=== PATIENT | female | born 1950 | race Asian ===

== ENCOUNTER 2016-06-19 04:24 | Inpatient (IN) | payer MEDICARE, MEDICAID ==
[~2016-06-19] VITALS: Ht 157.5 cm; Wt 67.2 kg
[~2016-06-19 04:24] MED LIST: FAMO20 GT; LACT30L GT; METF500T4 GT; METO50 GT; MIRAUD GT; ONDA4 GT; TRAZ-144 GT
[2016-06-19] MEDS ORDERED: TRAZ-144 PO (04:38)
[2016-06-19] MEDS ORDERED: METO50 PO (04:38)
[2016-06-19] MEDS ORDERED: MV-M1TAB20 GT (04:38)
[2016-06-19] MEDS ORDERED: ONDA4 PO (04:38)
[2016-06-19] MEDS ORDERED: LACT30L PO (04:38)
[2016-06-19] MEDS ORDERED: ALBU8HFA NEB (04:38)
[2016-06-19] MEDS ORDERED: METF500T4 PO (04:38)
[2016-06-19] MEDS ORDERED: FAMO20 PO (04:38)
[2016-06-19 04:50] LABS: EOSINOPHILS # (AUTO) 0.03 K/uL (0.00-0.70); EOSINOPHILS % (AUTO) 0.21 % (1.0-6.0); HEMATOCRIT 42.1 % (36-46); LYMPHOCYTES # (AUTO) 1.6 K/uL (1.0-4.8); LYMPHOCYTES % (AUTO) 12.4 % (22.0-44.0); MEAN CORPUSCULAR HEMOGLOBIN 29.1 pg (26.0-34.0); MEAN CORPUSCULAR HGB CONC 33.2 G/dL (31.0-37.0); MEAN CORPUSCULAR VOLUME 87 fL (80-100); MONOCYTES # (AUTO) 0.4 K/uL (0.1-1.0); MONOCYTES % (AUTO) 3.1 % (2.0-9.0); NEUTROPHILS # (AUTO) 10.6 K/uL (1.8-7.7); NEUTROPHILS % (AUTO) 84.2 % (40.0-70.0); PLATELET COUNT (AUTO) 252 K/uL (150-450); RED BLOOD CELL COUNT(AUTO) 4.82 MIL/uL (4.00-5.20); WHITE BLOOD COUNT (AUTO) 12.5 K/uL (4.5-11.0)
[2016-06-19 04:52] LABS: APPEARANCE,URINE TURBID (CLEAR); GLUCOSE, URINE (UA) NEGATIVE (NEGATIVE); KETONES,URINE NEGATIVE (NEGATIVE); LEUKOCYTE ESTERASE ,URINE SMALL (NEGATIVE); OCCULT BLOOD,URINE SMALL (NEGATIVE); PROTEIN,URINE NEGATIVE (NEGATIVE)
[2016-06-19 04:54] LABS: ADD UA MICROSCOPIC YES
[2016-06-19] MEDS ORDERED: SODIUM CHLORIDE 0.9% 1,000 ML IV ONE (05:15)
[2016-06-19] MEDS ORDERED: ONDANSETRON HCL 4 MG/2 ML VIAL IVP ONE (05:15)
[2016-06-19 05:21] LABS: AMORPHOUS SEDIMENT,UR Moderate /LPF (None Seen)
[2016-06-19 05:30] LABS: ANION GAP 5 mmol/L (8-16); CALCIUM, TOTAL 9.7 mg/dL (8.8-10.5); CARBON DIOXIDE 32 mmol/L (22-29); CHLORIDE 98 mmol/L (98-107); CREATININE 0.69 mg/dL (0.60-1.30); GLOMERULAR FILTR. RATE CALC > 60 mL/min (>60); POTASSIUM 4.3 mmol/L (3.5-5.1); SODIUM SERUM 135 mmol/L (136-145); UREA NITROGEN, BLOOD 17 mg/dL (7-18)
[2016-06-19 05:37] LABS: ALANINE AMINOTRANSFERASE 37 U/L (12-78); ALBUMIN 3.4 g/dL (3.4-5.0); ASPARTATE AMINOTRANSFERASE 21 U/L (15-37); BILIRUBIN,TOTAL 0.5 mg/dL (0.1-1.0); TOTAL PROTEIN, SERUM 8.2 g/dL (6.4-8.2)
[2016-06-19] MEDS ORDERED: BARIUM SULFATE 0.1% SUSPENSION 450 ML BOTTLE GT ONE (07:00)
[2016-06-19] MEDS ORDERED: IOVERSOL 320 MG/ML 100 ML VIAL ONE (07:35)
[2016-06-19] MEDS ORDERED: CloNIDine HCL 0.1 MG TABLET PO ONE (11:15)
[2016-06-19] MEDS ORDERED: CloNIDine HCL 0.2 MG TABLET PO ONE (11:15)
[2016-06-19] MEDS ORDERED: LEVOFLOXACIN 500 MG/D5% WATER 100 ML IV ONE (11:15)
[2016-06-19] MEDS ORDERED: MetroNIDAZOLE 500 MG/NACL 100 ML IV ONE (12:30)
[2016-06-19] MEDS ORDERED: ONDANSETRON HCL 4 MG/2 ML VIAL IVP PRN (13:30)
[2016-06-19] MEDS ORDERED: ACETAMINOPHEN 325 MG TABLET PO PRN (13:30)
[2016-06-19] MEDS ORDERED: ZOLPIDEM TARTRATE 5 MG TABLET PO PRN (13:30)
[2016-06-19] MEDS ORDERED: DEXTROSE 50%-WATER 25 GM/50 ML SYRINGE IVP PRN (13:30)
[2016-06-19] MEDS: METOPROLOL TARTRATE 50 MG TABLET PO SCH ×2 (13:46→20:33)
[2016-06-19] MEDS: POTASSIUM CHL 20 MEQ/D5-0.45NS 1,000 ML IV SCH (13:46)
[2016-06-19 15:53] VITALS: BP 122/78
[2016-06-19] MEDS: HEPARIN SODIUM,PORCINE 5,000 UNITS/ML VIAL SQ SCH (17:01)
[2016-06-19 17:37] LABS: GLUCOSE,POINT OF CARE 120 MG/DL (70-110)
[2016-06-19] MEDS ORDERED: INFLUENZA VIRUS VACCINE QVS 2016-17 (3YR+)/PF 60 MCG/0.5 ML SYRINGE IM ONE (18:30)
[2016-06-19] MEDS ORDERED: PNEUMOCOCCAL VACCINE POLYVALENT 0.5 ML VIAL [PPSV23] IM ONE (18:30)
[2016-06-19 19:42] VITALS: BP 136/90
[2016-06-19 23:45] VITALS: BP 80/52
[2016-06-20] VITALS (10 sets, daily range): BP systolic 94–155; BP diastolic 55–95
[2016-06-20] MEDS ORDERED: SODIUM CHLORIDE 0.9% 500 ML IV ONE ×2 (00:20→00:30)
[2016-06-20 01:16] LABS: GLUCOSE COMMENT 1 Received Meds; GLUCOSE,POINT OF CARE 106 MG/DL (70-110)
[2016-06-20] MEDS: POTASSIUM CHL 20 MEQ/D5-0.45NS 1,000 ML IV SCH ×2 (05:55→18:47)
[2016-06-20 06:00] LABS: EOSINOPHILS # (AUTO) 0.02 K/uL (0.00-0.70); EOSINOPHILS % (AUTO) 0.25 % (1.0-6.0); HEMATOCRIT 38.4 % (36-46); HEMOGLOBIN 13.1 g/dL (12.0-16.0); LYMPHOCYTES # (AUTO) 1.5 K/uL (1.0-4.8); LYMPHOCYTES % (AUTO) 17.2 % (22.0-44.0); MEAN CORPUSCULAR HEMOGLOBIN 29.6 pg (26.0-34.0); MEAN CORPUSCULAR VOLUME 87 fL (80-100); MONOCYTES # (AUTO) 0.5 K/uL (0.1-1.0); MONOCYTES % (AUTO) 6.2 % (2.0-9.0); NEUTROPHILS # (AUTO) 6.6 K/uL (1.8-7.7); NEUTROPHILS % (AUTO) 76.4 % (40.0-70.0); PLATELET COUNT (AUTO) 239 K/uL (150-450); RED BLOOD CELL COUNT(AUTO) 4.41 MIL/uL (4.00-5.20); RED CELL DISTRIBUTION WIDTH 14.5 % (11.5-14.5); WHITE BLOOD COUNT (AUTO) 8.6 K/uL (4.5-11.0)
[2016-06-20 06:32] LABS: GLUCOSE,POINT OF CARE 100 MG/DL (70-110)
[2016-06-20 06:40] LABS: ALANINE AMINOTRANSFERASE 31 U/L (12-78); ALBUMIN 2.8 g/dL (3.4-5.0); ANION GAP 8 mmol/L (8-16); ASPARTATE AMINOTRANSFERASE 23 U/L (15-37); BILIRUBIN,TOTAL 0.7 mg/dL (0.1-1.0); CALCIUM, TOTAL 9.2 mg/dL (8.8-10.5); CARBON DIOXIDE 28 mmol/L (22-29); CHLORIDE 103 mmol/L (98-107); CREATININE 0.62 mg/dL (0.60-1.30); GLOMERULAR FILTR. RATE CALC > 60 mL/min (>60); POTASSIUM 4.4 mmol/L (3.5-5.1); SODIUM SERUM 139 mmol/L (136-145); TOTAL PROTEIN, SERUM 7.2 g/dL (6.4-8.2); UREA NITROGEN, BLOOD 11 mg/dL (7-18)
[2016-06-20] MEDS: PANTOPRAZOLE SODIUM 40 MG/VIAL IVP SCH (08:59)
[2016-06-20] MEDS: HEPARIN SODIUM,PORCINE 5,000 UNITS/ML VIAL SQ SCH ×4 (08:59→23:43)
[2016-06-20] MEDS: METOPROLOL TARTRATE 50 MG TABLET PO SCH ×2 (08:59→20:42)
[2016-06-20 11:32] LABS: GLUCOSE,POINT OF CARE 106 MG/DL (70-110)
[2016-06-20 17:28] LABS: GLUCOSE,POINT OF CARE 120 MG/DL (70-110)
[2016-06-20] MEDS: TraZODone HCL 50 MG TABLET PO SCH (22:43)
[2016-06-21 00:12] LABS: GLUCOSE,POINT OF CARE 139 MG/DL (70-110)
[2016-06-21 04:35] VITALS: BP 134/83
[2016-06-21] MEDS: INSULIN ASPART 100 UNITS/ML SQ PRN ×2 (06:08→17:33)
[2016-06-21 06:31] LABS: BASOPHILS % (AUTO) 0.3 % (0.0-2.0); EOSINOPHILS % (AUTO) 0.8 % (1.0-6.0); HEMATOCRIT 40.2 % (36-46); HEMOGLOBIN 13.1 g/dL (12.0-16.0); LYMPHOCYTES # (AUTO) 1.5 K/uL (1.0-4.8); MEAN CORPUSCULAR HEMOGLOBIN 28.7 pg (26.0-34.0); MEAN CORPUSCULAR HGB CONC 32.5 G/dL (31.0-37.0); MEAN CORPUSCULAR VOLUME 88 fL (80-100); MONOCYTES # (AUTO) 0.6 K/uL (0.1-1.0); MONOCYTES % (AUTO) 6.7 % (2.0-9.0); NEUTROPHILS # (AUTO) 6.2 K/uL (1.8-7.7); NEUTROPHILS % (AUTO) 74.2 % (40.0-70.0); PLATELET COUNT (AUTO) 268 K/uL (150-450); RED BLOOD CELL COUNT(AUTO) 4.56 MIL/uL (4.00-5.20); RED CELL DISTRIBUTION WIDTH 14.2 % (11.5-14.5); WHITE BLOOD COUNT (AUTO) 8.3 K/uL (4.5-11.0)
[2016-06-21 07:01] LABS: GLUCOSE,POINT OF CARE 142 MG/DL (70-110)
[2016-06-21 07:05] LABS: ALANINE AMINOTRANSFERASE 32 U/L (12-78); ALBUMIN 2.9 g/dL (3.4-5.0); ANION GAP 8 mmol/L (8-16); ASPARTATE AMINOTRANSFERASE 20 U/L (15-37); BILIRUBIN,TOTAL 0.5 mg/dL (0.1-1.0); CALCIUM, TOTAL 9.3 mg/dL (8.8-10.5); CARBON DIOXIDE 28 mmol/L (22-29); CHLORIDE 101 mmol/L (98-107); CREATININE 0.63 mg/dL (0.60-1.30); GLOMERULAR FILTR. RATE CALC > 60 mL/min (>60); POTASSIUM 4.1 mmol/L (3.5-5.1); SODIUM SERUM 137 mmol/L (136-145); TOTAL PROTEIN, SERUM 7.7 g/dL (6.4-8.2); UREA NITROGEN, BLOOD 10 mg/dL (7-18)
[2016-06-21 07:16] VITALS: BP 155/91
[2016-06-21] MEDS: HEPARIN SODIUM,PORCINE 5,000 UNITS/ML VIAL SQ SCH ×2 (09:02→16:23)
[2016-06-21] MEDS: POTASSIUM CHL 20 MEQ/D5-0.45NS 1,000 ML IV SCH (09:02)
[2016-06-21] MEDS: PANTOPRAZOLE SODIUM 40 MG/VIAL IVP SCH (09:02)
[2016-06-21] MEDS: METOPROLOL TARTRATE 50 MG TABLET PO SCH ×2 (09:02→21:47)
[2016-06-21 11:38] VITALS: BP 143/81
[2016-06-21 12:32] LABS: GLUCOSE,POINT OF CARE 121 MG/DL (70-110)
[2016-06-21 15:38] VITALS: BP 143/83
[2016-06-21 19:29] VITALS: BP 156/98
[2016-06-21 20:11] LABS: GLUCOSE COMMENT 1 Received Meds; GLUCOSE,POINT OF CARE 153 MG/DL (70-110)
[2016-06-22 00:05] VITALS: BP 160/94
[2016-06-22] MEDS: TraZODone HCL 50 MG TABLET PO SCH (00:07)
[2016-06-22] MEDS: HEPARIN SODIUM,PORCINE 5,000 UNITS/ML VIAL SQ SCH ×3 (00:07→17:28)
[2016-06-22] MEDS: POTASSIUM CHL 20 MEQ/D5-0.45NS 1,000 ML IV SCH (00:34)
[2016-06-22 01:05] VITALS: BP 123/77
[2016-06-22 04:02] VITALS: BP 147/79
[2016-06-22] MEDS: INSULIN ASPART 100 UNITS/ML SQ PRN ×3 (06:34→17:56)
[2016-06-22 07:11] LABS: GLUCOSE COMMENT 1 Received Meds; GLUCOSE,POINT OF CARE 158 MG/DL (70-110)
[2016-06-22 07:14] LABS: ALANINE AMINOTRANSFERASE 29 U/L (12-78); ALBUMIN 2.8 g/dL (3.4-5.0); ANION GAP 8 mmol/L (8-16); ASPARTATE AMINOTRANSFERASE 19 U/L (15-37); BILIRUBIN,TOTAL 0.4 mg/dL (0.1-1.0); CALCIUM, TOTAL 9.1 mg/dL (8.8-10.5); CARBON DIOXIDE 28 mmol/L (22-29); CHLORIDE 98 mmol/L (98-107); CREATININE 0.55 mg/dL (0.60-1.30); GLOMERULAR FILTR. RATE CALC > 60 mL/min (>60); POTASSIUM 4.1 mmol/L (3.5-5.1); SODIUM SERUM 134 mmol/L (136-145); TOTAL PROTEIN, SERUM 7.4 g/dL (6.4-8.2); UREA NITROGEN, BLOOD 10 mg/dL (7-18)
[2016-06-22 07:30] LABS: BASOPHILS # (AUTO) 0.02 K/uL (0.00-0.20); BASOPHILS % (AUTO) 0.3 % (0.0-2.0); EOSINOPHILS # (AUTO) 0.04 K/uL (0.00-0.70); EOSINOPHILS % (AUTO) 0.43 % (1.0-6.0); HEMATOCRIT 40.1 % (36-46); HEMOGLOBIN 13.1 g/dL (12.0-16.0); LYMPHOCYTES # (AUTO) 1.3 K/uL (1.0-4.8); LYMPHOCYTES % (AUTO) 13.9 % (22.0-44.0); MEAN CORPUSCULAR HEMOGLOBIN 28.7 pg (26.0-34.0); MEAN CORPUSCULAR HGB CONC 32.6 G/dL (31.0-37.0); MEAN CORPUSCULAR VOLUME 88 fL (80-100); MONOCYTES # (AUTO) 0.6 K/uL (0.1-1.0); MONOCYTES % (AUTO) 6.4 % (2.0-9.0); NEUTROPHILS # (AUTO) 7.4 K/uL (1.8-7.7); NEUTROPHILS % (AUTO) 79.1 % (40.0-70.0); PLATELET COUNT (AUTO) 267 K/uL (150-450); RED BLOOD CELL COUNT(AUTO) 4.56 MIL/uL (4.00-5.20); RED CELL DISTRIBUTION WIDTH 14.2 % (11.5-14.5); WHITE BLOOD COUNT (AUTO) 9.4 K/uL (4.5-11.0)
[2016-06-22 08:14] VITALS: BP 145/74
[2016-06-22] MEDS: METOPROLOL TARTRATE 50 MG TABLET PO SCH (09:39)
[2016-06-22] MEDS: PANTOPRAZOLE SODIUM 40 MG/VIAL IVP SCH (09:41)
[2016-06-22 11:50] VITALS: BP 142/85
[2016-06-22 14:16] LABS: GLUCOSE,POINT OF CARE 157 MG/DL (70-110)
[2016-06-22 14:22] LABS: GLUCOSE,POINT OF CARE 164 MG/DL (70-110)
[2016-06-22 16:39] VITALS: BP 116/81
[2016-06-22] MEDS ORDERED: CIP250 PO (16:39)
[2016-06-22 17:52] LABS: GLUCOSE,POINT OF CARE 152 MG/DL (70-110)
== END 2016-06-22 18:35 | disposition home or self-care (01) | DRG 690 ==
LOC: EMS 04:25 → EDBD 04:25 → MERGE 14:09 → 6N 14:09
PROVIDERS: ADMIT Hospitalist; ATTEND Hospitalist
PROC: 3E0234Z Introduction of Serum, Toxoid and Vaccine into Muscle, Percutaneous Approach (ICD-10-PCS; principal; 2016-06-19)
DX: N39.0 Urinary tract infection, site not specified (principal); I69.354 Hemiplegia and hemiparesis following cerebral infarction affecting left non-dominant side; R47.01 Aphasia; R10.9 Unspecified abdominal pain; R13.10 Dysphagia, unspecified; E11.9 Type 2 diabetes mellitus without complications; E78.5 Hyperlipidemia, unspecified; E86.0 Dehydration; J45.909 Unspecified asthma, uncomplicated; I10 Essential (primary) hypertension; Z23 Encounter for immunization; Z93.1 Gastrostomy status; Z88.6 Allergy status to analgesic agent; Z88.5 Allergy status to narcotic agent; Z88.7 Allergy status to serum and vaccine; Z79.4 Long term (current) use of insulin
CPT/HCPCS: 51702; 74177; 76700; 82962; 83605; 90471; 93005; 96361; 96365; 96366; 96367; 96375; 99285; C9113; J1644; J1956; J2405; J3480; J3490; J7040

== ENCOUNTER 2016-08-24 08:04 | Emergency (ER) | payer MEDICARE, OTHER ==
[~2016-08-24] VITALS: Ht 162.6 cm; Wt 61.4 kg
[~2016-08-24 08:04] MED LIST changes: +ALBU8HFA NEB; +CIP250 PO; +FAMO20 PO; +LACT30L PO; +METF500T4 PO; +METO50 PO; +MV-M1TAB20 GT; +ONDA4 PO; +TRAZ-144 PO
[2016-08-24] MEDS ORDERED: BARIUM SULFATE 0.1% SUSPENSION 450 ML BOTTLE PEG ONE (08:45)
[2016-08-24] MEDS ORDERED: ONDANSETRON HCL 4 MG/2 ML VIAL IVP ONE (08:45)
[2016-08-24] MEDS ORDERED: SODIUM CHLORIDE 0.9% 1,000 ML IV ONE (08:45)
[2016-08-24 08:59] LABS: BASOPHILS # (AUTO) 0.02 K/uL (0.00-0.20); BASOPHILS % (AUTO) 0.3 % (0.0-2.0); EOSINOPHILS # (AUTO) 0.17 K/uL (0.00-0.70); HEMATOCRIT 43.7 % (36-46); HEMOGLOBIN 14.2 g/dL (12.0-16.0); LYMPHOCYTES # (AUTO) 1.6 K/uL (1.0-4.8); LYMPHOCYTES % (AUTO) 21.1 % (22.0-44.0); MEAN CORPUSCULAR HEMOGLOBIN 28.8 pg (26.0-34.0); MEAN CORPUSCULAR HGB CONC 32.5 G/dL (31.0-37.0); MEAN CORPUSCULAR VOLUME 89 fL (80-100); MONOCYTES # (AUTO) 0.6 K/uL (0.1-1.0); MONOCYTES % (AUTO) 7.9 % (2.0-9.0); NEUTROPHILS # (AUTO) 5.3 K/uL (1.8-7.7); NEUTROPHILS % (AUTO) 68.6 % (40.0-70.0); PLATELET COUNT (AUTO) 270 K/uL (150-450); RED BLOOD CELL COUNT(AUTO) 4.92 MIL/uL (4.00-5.20); RED CELL DISTRIBUTION WIDTH 14.4 % (11.5-14.5); WHITE BLOOD COUNT (AUTO) 7.7 K/uL (4.5-11.0)
[2016-08-24 09:08] LABS: ANION GAP 7 mmol/L (8-16); CALCIUM, TOTAL 9.6 mg/dL (8.8-10.5); CARBON DIOXIDE 30 mmol/L (22-29); CHLORIDE 97 mmol/L (98-107); CREATININE 0.75 mg/dL (0.60-1.30); GLOMERULAR FILTR. RATE CALC > 60 mL/min (>60); POTASSIUM 4.3 mmol/L (3.5-5.1); SODIUM SERUM 134 mmol/L (136-145); UREA NITROGEN, BLOOD 16 mg/dL (7-18)
[2016-08-24 09:14] LABS: ALANINE AMINOTRANSFERASE 73 U/L (12-78); ALBUMIN 3.4 g/dL (3.4-5.0); ASPARTATE AMINOTRANSFERASE 43 U/L (15-37); BILIRUBIN,TOTAL 0.5 mg/dL (0.1-1.0)
[2016-08-24 09:31] LABS: GLUCOSE, URINE (UA) NEGATIVE (NEGATIVE); KETONES,URINE NEGATIVE (NEGATIVE); LEUKOCYTE ESTERASE ,URINE NEGATIVE (NEGATIVE); OCCULT BLOOD,URINE NEGATIVE (NEGATIVE); PROTEIN,URINE NEGATIVE (NEGATIVE)
[2016-08-24 09:40] LABS: ADD UA MICROSCOPIC NO; APPEARANCE,URINE CLEAR (CLEAR)
[2016-08-24] MEDS ORDERED: IOVERSOL 320 MG/ML 100 ML VIAL ONE (10:49)
[2016-08-24] MEDS ORDERED: SODIUM CHLORIDE 0.9% 100 ML ONE (10:50)
[2016-08-24 12:42] VITALS: BP 142/87
== END 2016-08-24 13:36 | disposition home or self-care (01) ==
LOC: EMS 08:05
DX: K62.89 Other specified diseases of anus and rectum (principal); R11.2 Nausea with vomiting, unspecified; I10 Essential (primary) hypertension; Z86.73 Personal history of transient ischemic attack (TIA), and cerebral infarction without residual deficits; Z88.5 Allergy status to narcotic agent; Z88.8 Allergy status to other drugs, medicaments and biological substances
CPT/HCPCS: 36415; 51701; 71010; 74177; 80053; 81003; 83690; 84484; 85025; 93005; 96361; 96374; 99285; J2405; J7030; J7050; Q9967

== ENCOUNTER 2017-02-19 18:35 | Inpatient (IN) | payer MEDICARE, OTHER ==
[~2017-02-19] VITALS: Ht 152.4 cm; Wt 63.9 kg
[~2017-02-19 18:35] MED LIST changes: -CIP250 PO; -FAMO20 PO; -LACT30L PO; -METF500T4 PO; -METO50 PO; -MIRAUD GT; -ONDA4 PO; -TRAZ-144 PO
[2017-02-19] MEDS ORDERED: CHOL200016 PO (18:51)
[2017-02-19 18:52] LABS: GLUCOSE,POINT OF CARE 211 MG/DL (70-110)
[2017-02-19] MEDS ORDERED: IPRATROPIUM BROMIDE 0.5 MG/2.5 ML NEB SOLUTION NEB ONE (19:00)
[2017-02-19] MEDS ORDERED: SODIUM CHLORIDE 0.9% 2,000 ML IV ONE (19:00)
[2017-02-19] MEDS ORDERED: ALBUTEROL SULFATE 5 MG/ML 20 ML NEB SOLN [BULK] NEB ONE (19:00)
[2017-02-19 19:12] LABS: HEMATOCRIT 45.7 % (36-46); HEMOGLOBIN 15.3 g/dL (12.0-16.0); MEAN CORPUSCULAR HEMOGLOBIN 29.6 pg (26.0-34.0); MEAN CORPUSCULAR HGB CONC 33.4 G/dL (31.0-37.0); MEAN CORPUSCULAR VOLUME 89 fL (80-100); PLATELET COUNT (AUTO) 263 K/uL (150-450); RED BLOOD CELL COUNT(AUTO) 5.16 MIL/uL (4.00-5.20); RED CELL DISTRIBUTION WIDTH 13.9 % (11.5-14.5); WHITE BLOOD COUNT (AUTO) 16.5 K/uL (4.5-11.0)
[2017-02-19] MEDS ORDERED: ONDANSETRON HCL 4 MG/2 ML VIAL IVP ONE (19:15)
[2017-02-19] MEDS ORDERED: ACETAMINOPHEN 1000 MG/ISO-OSM 100 ML IV ONE (19:15)
[2017-02-19 19:22] LABS: ANION GAP 11 mmol/L (8-16); CALCIUM, TOTAL 10.5 mg/dL (8.8-10.5); CARBON DIOXIDE 30 mmol/L (22-29); CHLORIDE 95 mmol/L (98-107); CREATININE 0.97 mg/dL (0.60-1.30); GLOMERULAR FILTR. RATE CALC 57 mL/min (>60); SODIUM SERUM 136 mmol/L (136-145); UREA NITROGEN, BLOOD 20 mg/dL (7-18)
[2017-02-19 19:24] LABS: PROTHROMBIN TIME 10.3 SEC (9.4-11.6)
[2017-02-19 19:28] LABS: ALANINE AMINOTRANSFERASE 156 U/L (12-78); ALBUMIN 3.6 g/dL (3.4-5.0); ASPARTATE AMINOTRANSFERASE 290 U/L (15-37); BILIRUBIN,TOTAL 1.5 mg/dL (0.1-1.0); CREATINE KINASE, TOTAL 50 U/L (26-192); TOTAL PROTEIN, SERUM 8.9 g/dL (6.4-8.2)
[2017-02-19 19:31] LABS: LACTIC ACID 3.5 mmol/L (0.4-2.0)
[2017-02-19 19:37] LABS: BAND NEUTROPHILS % (MANUAL) 15 % (1-5); EOSINOPHILS % (MANUAL) 1 % (1-6); LYMPHOCYTES % (MANUAL) 10 % (22-44); TOTAL CELLS COUNTED 100; WBC MORPHOLOGY TOXIC VACUOLATION
[2017-02-19 19:38] LABS: RBC MORPHOLOGY COMMENT NORMAL RBC MORPH
[2017-02-19 19:43] LABS: ADD UA MICROSCOPIC YES; APPEARANCE,URINE CLOUDY (CLEAR); GLUCOSE, URINE (UA) NEGATIVE (NEGATIVE); KETONES,URINE NEGATIVE (NEGATIVE); LEUKOCYTE ESTERASE ,URINE NEGATIVE (NEGATIVE); OCCULT BLOOD,URINE MODERATE (NEGATIVE); PROTEIN,URINE TRACE (NEGATIVE)
[2017-02-19] MEDS ORDERED: LABETALOL HCL 5 MG/ML 20 ML VIAL IVP ONE (19:45)
[2017-02-19 19:47] LABS: B-TYPE NATRIURETIC PEPTIDE 44 pg/mL (0-100)
[2017-02-19 20:05] LABS: SQUAMOUS EPITHELIAL CELL,UR Few /LPF (None Seen); WBC,URINE 0-2 /HPF (0-5)
[2017-02-19] MEDS ORDERED: CefTRIAXone 1 GM/DEXTROSE 50 ML IV ONE (20:30)
[2017-02-19] MEDS ORDERED: AZITHROMYCIN 500 MG/NS 250 ML IV ONE (20:30)
[2017-02-19 21:07] LABS: REFLEX LACTIC ACID? YES YES
[2017-02-19 21:18] LABS: INFLUENZA TYPE B NEGATIVE FOR TYPE B (NEGATIVE)
[2017-02-19 21:30] VITALS: BP 152/88
[2017-02-19 23:58] VITALS: BP 148/95
[2017-02-20] VITALS (7 sets, daily range): BP systolic 106–168; BP diastolic 69–101
[2017-02-20] MEDS ORDERED: 0.9% SODIUM CHLORIDE 10 ML SYRINGE IVP PRN (01:00)
[2017-02-20] MEDS ORDERED: ACETAMINOPHEN 325 MG TABLET PO PRN (01:00)
[2017-02-20] MEDS ORDERED: LACTULOSE 20 GM/30 ML SOLUTION UDCUP GT PRN (01:00)
[2017-02-20] MEDS ORDERED: ONDANSETRON HCL 4 MG/2 ML VIAL IVP PRN (01:00)
[2017-02-20] MEDS ORDERED: DEXTROSE 50%-WATER 25 GM/50 ML SYRINGE IVP PRN (01:00)
[2017-02-20] MEDS ORDERED: MAGNESIUM HYDROXIDE SUSPENSION 30 ML UDCUP PO PRN (01:00)
[2017-02-20] MEDS ORDERED: ALBUTEROL SULFATE 2.5 MG/0.5 ML NEB SOLUTION NEB PRN (01:00)
[2017-02-20] MEDS ORDERED: SODIUM CHLORIDE 0.9% 100 ML ONE (01:51)
[2017-02-20] MEDS: PIPERACILLIN/TAZO 3.375 GM/D5W 50 ML IV SCH ×4 (01:55→20:32)
[2017-02-20] MEDS: METOPROLOL TARTRATE 50 MG TABLET GT SCH ×3 (01:55→20:32)
[2017-02-20] MEDS: DOCUSATE SODIUM 100 MG CAPSULE PO SCH ×3 (01:55→20:32)
[2017-02-20] MEDS: IPRATROPIUM BROMIDE 0.5 MG/2.5 ML NEB SOLUTION NEB SCH ×4 (02:25→19:31)
[2017-02-20] MEDS: ALBUTEROL SULFATE 2.5 MG/0.5 ML NEB SOLUTION NEB SCH ×4 (02:25→19:32)
[2017-02-20 07:23] LABS: GLUCOSE,POINT OF CARE 238 MG/DL (70-110)
[2017-02-20 07:23] LABS: GLUCOSE,POINT OF CARE 259 MG/DL (70-110)
[2017-02-20] MEDS: FAMOTIDINE 20 MG TABLET GT SCH (08:52)
[2017-02-20] MEDS: PANTOPRAZOLE SODIUM 40 MG/VIAL IVP SCH (08:52)
[2017-02-20] MEDS: CHOLECALCIFEROL (VIT D3) 2,000 UNITS TABLET GT SCH (08:52)
[2017-02-20] MEDS: INSULIN ASPART 100 UNITS/ML SQ PRN ×3 (13:21→20:33)
[2017-02-20] MEDS: TraZODone HCL 50 MG TABLET GT SCH (20:32)
[2017-02-21] MEDS: ALBUTEROL SULFATE 2.5 MG/0.5 ML NEB SOLUTION NEB SCH ×4 (02:20→19:47)
[2017-02-21] MEDS: IPRATROPIUM BROMIDE 0.5 MG/2.5 ML NEB SOLUTION NEB SCH ×4 (02:21→19:47)
[2017-02-21] MEDS ORDERED: SODIUM CHLORIDE 0.9% 50 ML ONE (02:22)
[2017-02-21] MEDS: PIPERACILLIN/TAZO 3.375 GM/D5W 50 ML IV SCH ×4 (02:25→20:43)
[2017-02-21 05:31] VITALS: BP 119/78
[2017-02-21] MEDS: INSULIN ASPART 100 UNITS/ML SQ PRN ×4 (06:03→20:58)
[2017-02-21 06:13] LABS: GLUCOSE COMMENT 1 Received Meds; GLUCOSE,POINT OF CARE 252 MG/DL (70-110)
[2017-02-21 07:05] LABS: HEMATOCRIT 38.3 % (36-46); HEMOGLOBIN 12.9 g/dL (12.0-16.0); MEAN CORPUSCULAR HEMOGLOBIN 29.8 pg (26.0-34.0); MEAN CORPUSCULAR HGB CONC 33.7 G/dL (31.0-37.0); MEAN CORPUSCULAR VOLUME 88 fL (80-100); PLATELET COUNT (AUTO) 174 K/uL (150-450); RED BLOOD CELL COUNT(AUTO) 4.33 MIL/uL (4.00-5.20); RED CELL DISTRIBUTION WIDTH 14.8 % (11.5-14.5)
[2017-02-21 07:13] LABS: ANION GAP 9 mmol/L (8-16); CALCIUM, TOTAL 9.3 mg/dL (8.8-10.5); CARBON DIOXIDE 29 mmol/L (22-29); CHLORIDE 98 mmol/L (98-107); CREATININE 0.82 mg/dL (0.60-1.30); GLOMERULAR FILTR. RATE CALC > 60 mL/min (>60); POTASSIUM 3.3 mmol/L (3.5-5.1); SODIUM SERUM 136 mmol/L (136-145); UREA NITROGEN, BLOOD 23 mg/dL (7-18)
[2017-02-21 07:25] VITALS: BP 99/63
[2017-02-21 08:51] LABS: BAND NEUTROPHILS % (MANUAL) 15 % (1-5); LYMPHOCYTES % (MANUAL) 12 % (22-44); RBC MORPHOLOGY COMMENT NORMAL RBC MORPH; TOTAL CELLS COUNTED 100
[2017-02-21] MEDS: METOPROLOL TARTRATE 50 MG TABLET GT SCH ×2 (09:00→11:51)
[2017-02-21] MEDS: PANTOPRAZOLE SODIUM 40 MG/VIAL IVP SCH (10:00)
[2017-02-21] MEDS: CHOLECALCIFEROL (VIT D3) 2,000 UNITS TABLET GT SCH (10:00)
[2017-02-21] MEDS: DOCUSATE SODIUM 100 MG CAPSULE PO SCH ×2 (10:00→20:44)
[2017-02-21] MEDS: FAMOTIDINE 20 MG TABLET GT SCH (10:01)
[2017-02-21 11:12] LABS: GLUCOSE COMMENT 1 Received Meds; GLUCOSE,POINT OF CARE 230 MG/DL (70-110)
[2017-02-21 11:14] VITALS: BP 113/61
[2017-02-21] MEDS ORDERED: POTASSIUM CHLORIDE 10% 40 MEQ/30 ML LIQUID UDCUP JT ONE (11:30)
[2017-02-21] MEDS: ACETAMINOPHEN 650 MG/20.3 ML SOLUTION UDCUP JT PRN (13:21)
[2017-02-21 14:32] LABS: GLUCOSE,POINT OF CARE 261 MG/DL (70-110)
[2017-02-21 14:32] LABS: GLUCOSE,POINT OF CARE 261 MG/DL (70-110)
[2017-02-21 15:18] VITALS: BP 91/50
[2017-02-21 19:41] LABS: GLUCOSE,POINT OF CARE 227 MG/DL (70-110)
[2017-02-21 19:42] LABS: GLUCOSE,POINT OF CARE 305 MG/DL (70-110)
[2017-02-21 19:42] LABS: GLUCOSE COMMENT 1 Repeated; GLUCOSE,POINT OF CARE 297 MG/DL (70-110)
[2017-02-21] MEDS: TraZODone HCL 50 MG TABLET GT SCH (20:44)
[2017-02-21 20:48] LABS: ALANINE AMINOTRANSFERASE 183 U/L (12-78); ALBUMIN 2.5 g/dL (3.4-5.0); ASPARTATE AMINOTRANSFERASE 114 U/L (15-37); TOTAL PROTEIN, SERUM 6.8 g/dL (6.4-8.2)
[2017-02-21 20:57] VITALS: BP 103/69
[2017-02-21 23:44] VITALS: BP 103/66
[2017-02-22] MEDS ORDERED: SODIUM CHLORIDE 0.9% 250 ML IV ONE (02:25)
[2017-02-22] MEDS: PIPERACILLIN/TAZO 3.375 GM/D5W 50 ML IV SCH ×3 (02:28→16:06)
[2017-02-22] MEDS: IPRATROPIUM BROMIDE 0.5 MG/2.5 ML NEB SOLUTION NEB SCH ×4 (02:39→20:42)
[2017-02-22] MEDS: ALBUTEROL SULFATE 2.5 MG/0.5 ML NEB SOLUTION NEB SCH ×4 (02:39→20:42)
[2017-02-22 02:42] LABS: GLUCOSE COMMENT 1 Received Meds; GLUCOSE,POINT OF CARE 298 MG/DL (70-110)
[2017-02-22 03:57] VITALS: BP 110/69
[2017-02-22] MEDS: INSULIN ASPART 100 UNITS/ML SQ PRN ×2 (06:12→17:33)
[2017-02-22 07:08] VITALS: BP 109/62
[2017-02-22 08:26] LABS: BASOPHILS % (AUTO) 0.1 % (0.0-2.0); EOSINOPHILS % (AUTO) 0.2 % (1.0-6.0); HEMOGLOBIN 12.4 g/dL (12.0-16.0); LYMPHOCYTES # (AUTO) 0.6 K/uL (1.0-4.8); LYMPHOCYTES % (AUTO) 5.6 % (22.0-44.0); MEAN CORPUSCULAR HEMOGLOBIN 30.3 pg (26.0-34.0); MEAN CORPUSCULAR HGB CONC 34.4 G/dL (31.0-37.0); MEAN CORPUSCULAR VOLUME 88 fL (80-100); MONOCYTES # (AUTO) 0.5 K/uL (0.1-1.0); MONOCYTES % (AUTO) 4.7 % (2.0-9.0); NEUTROPHILS # (AUTO) 9.1 K/uL (1.8-7.7); PLATELET COUNT (AUTO) 145 K/uL (150-450); RED BLOOD CELL COUNT(AUTO) 4.08 MIL/uL (4.00-5.20); RED CELL DISTRIBUTION WIDTH 14.9 % (11.5-14.5); WHITE BLOOD COUNT (AUTO) 10.1 K/uL (4.5-11.0)
[2017-02-22] MEDS: CHOLECALCIFEROL (VIT D3) 2,000 UNITS TABLET GT SCH (08:27)
[2017-02-22] MEDS: DOCUSATE SODIUM 100 MG CAPSULE PO SCH ×2 (08:27→21:28)
[2017-02-22] MEDS: PANTOPRAZOLE SODIUM 40 MG/VIAL IVP SCH (08:28)
[2017-02-22] MEDS: FAMOTIDINE 20 MG TABLET GT SCH (08:28)
[2017-02-22 08:29] LABS: NEUTROPHILS % (AUTO) 89.4 % (40.0-70.0); RBC MORPHOLOGY COMMENT NORMAL RBC MORPH
[2017-02-22 08:40] LABS: ANION GAP 8 mmol/L (8-16); CALCIUM, TOTAL 9.3 mg/dL (8.8-10.5); CARBON DIOXIDE 29 mmol/L (22-29); CHLORIDE 101 mmol/L (98-107); CREATININE 0.78 mg/dL (0.60-1.30); GLOMERULAR FILTR. RATE CALC > 60 mL/min (>60); SODIUM SERUM 138 mmol/L (136-145); UREA NITROGEN, BLOOD 27 mg/dL (7-18)
[2017-02-22] MEDS: METOPROLOL TARTRATE 50 MG TABLET GT SCH ×2 (09:00→21:00)
[2017-02-22 09:05] LABS: POTASSIUM 2.8 mmol/L (3.5-5.1)
[2017-02-22] MEDS ORDERED: POTASSIUM CHLORIDE 20 MEQ ER TABLET PO PRN (09:15)
[2017-02-22] MEDS: POTASSIUM CHL 10 MEQ/WATER 50 ML IV PRN ×4 (09:30→14:09)
[2017-02-22 11:18] VITALS: BP 109/81
[2017-02-22 12:53] LABS: GLUCOSE COMMENT 1 Received Meds; GLUCOSE,POINT OF CARE 298 MG/DL (70-110)
[2017-02-22 12:57] LABS: ALANINE AMINOTRANSFERASE 122 U/L (12-78); ALBUMIN 2.1 g/dL (3.4-5.0); ASPARTATE AMINOTRANSFERASE 51 U/L (15-37); BILIRUBIN,TOTAL 3.3 mg/dL (0.1-1.0); TOTAL PROTEIN, SERUM 6.5 g/dL (6.4-8.2)
[2017-02-22 15:37] VITALS: BP 112/76
[2017-02-22] MEDS ORDERED: IOVERSOL 320 MG/ML 100 ML VIAL ONE (18:45)
[2017-02-22] MEDS ORDERED: BARIUM SULFATE 0.1% SUSPENSION 450 ML BOTTLE ONE (18:46)
[2017-02-22 19:23] VITALS: BP 106/70
[2017-02-22] MEDS: CefTRIAXone 1 GM/DEXTROSE 50 ML IV SCH (21:27)
[2017-02-22] MEDS: TraZODone HCL 50 MG TABLET GT SCH (21:28)
[2017-02-22] MEDS: ACETAMINOPHEN 650 MG/20.3 ML SOLUTION UDCUP JT PRN (21:28)
[2017-02-22 21:52] LABS: GLUCOSE COMMENT 1 Received Meds; GLUCOSE,POINT OF CARE 234 MG/DL (70-110)
[2017-02-23] VITALS (7 sets, daily range): BP systolic 114–143; BP diastolic 68–94
[2017-02-23] MEDS: MetroNIDAZOLE 500 MG TABLET JT SCH ×4 (00:32→23:49)
[2017-02-23] MEDS: INSULIN ASPART 100 UNITS/ML SQ PRN ×5 (00:38→23:56)
[2017-02-23] MEDS: IPRATROPIUM BROMIDE 0.5 MG/2.5 ML NEB SOLUTION NEB SCH ×4 (02:34→20:05)
[2017-02-23] MEDS: ALBUTEROL SULFATE 2.5 MG/0.5 ML NEB SOLUTION NEB SCH ×4 (02:34→20:05)
[2017-02-23 06:37] LABS: BASOPHILS # (AUTO) 0.01 K/uL (0.00-0.20); BASOPHILS % (AUTO) 0.1 % (0.0-2.0); EOSINOPHILS # (AUTO) 0.19 K/uL (0.00-0.70); EOSINOPHILS % (AUTO) 2.21 % (1.0-6.0); HEMATOCRIT 33.6 % (36-46); HEMOGLOBIN 11.3 g/dL (12.0-16.0); LYMPHOCYTES # (AUTO) 1.2 K/uL (1.0-4.8); LYMPHOCYTES % (AUTO) 13.4 % (22.0-44.0); MEAN CORPUSCULAR HGB CONC 33.5 G/dL (31.0-37.0); MEAN CORPUSCULAR VOLUME 89 fL (80-100); MONOCYTES # (AUTO) 0.8 K/uL (0.1-1.0); MONOCYTES % (AUTO) 9.2 % (2.0-9.0); NEUTROPHILS # (AUTO) 6.6 K/uL (1.8-7.7); NEUTROPHILS % (AUTO) 75.1 % (40.0-70.0); PLATELET COUNT (AUTO) 145 K/uL (150-450); RED BLOOD CELL COUNT(AUTO) 3.77 MIL/uL (4.00-5.20); RED CELL DISTRIBUTION WIDTH 15.3 % (11.5-14.5); WHITE BLOOD COUNT (AUTO) 8.8 K/uL (4.5-11.0)
[2017-02-23 07:00] LABS: ALANINE AMINOTRANSFERASE 89 U/L (12-78); ALBUMIN 1.9 g/dL (3.4-5.0); ANION GAP 7 mmol/L (8-16); ASPARTATE AMINOTRANSFERASE 35 U/L (15-37); BILIRUBIN,TOTAL 2.1 mg/dL (0.1-1.0); CALCIUM, TOTAL 8.9 mg/dL (8.8-10.5); CARBON DIOXIDE 30 mmol/L (22-29); CHLORIDE 102 mmol/L (98-107); CREATININE 0.67 mg/dL (0.60-1.30); GLOMERULAR FILTR. RATE CALC > 60 mL/min (>60); POTASSIUM 3.5 mmol/L (3.5-5.1); SODIUM SERUM 139 mmol/L (136-145); TOTAL PROTEIN, SERUM 6.4 g/dL (6.4-8.2); UREA NITROGEN, BLOOD 24 mg/dL (7-18)
[2017-02-23 07:37] LABS: GLUCOSE COMMENT 1 Received Meds; GLUCOSE,POINT OF CARE 220 MG/DL (70-110)
[2017-02-23 07:38] LABS: GLUCOSE,POINT OF CARE 255 MG/DL (70-110)
[2017-02-23] MEDS ORDERED: SODIUM CHLORIDE 0.9% 50 ML ONE (09:35)
[2017-02-23] MEDS: FAMOTIDINE 20 MG TABLET GT SCH (09:48)
[2017-02-23] MEDS: DOCUSATE SODIUM 100 MG CAPSULE PO SCH ×2 (09:49→20:22)
[2017-02-23] MEDS: METOPROLOL TARTRATE 50 MG TABLET GT SCH ×2 (09:50→20:22)
[2017-02-23] MEDS: CHOLECALCIFEROL (VIT D3) 2,000 UNITS TABLET GT SCH (09:50)
[2017-02-23] MEDS: PANTOPRAZOLE SODIUM 40 MG/VIAL IVP SCH (09:51)
[2017-02-23] MEDS: POTASSIUM CHL 10 MEQ/WATER 50 ML IV PRN ×3 (10:15→14:14)
[2017-02-23] MEDS ORDERED: IOVERSOL 320 MG/ML 100 ML VIAL ONE (11:10)
[2017-02-23 11:43] LABS: GLUCOSE,POINT OF CARE 246 MG/DL (70-110)
[2017-02-23 12:03] LABS: GLUCOSE,POINT OF CARE 198 MG/DL (70-110)
[2017-02-23 17:43] LABS: GLUCOSE,POINT OF CARE 268 MG/DL (70-110)
[2017-02-23] MEDS: ACETAMINOPHEN 650 MG/20.3 ML SOLUTION UDCUP JT PRN (20:22)
[2017-02-23] MEDS: OXYGEN THERAPY IH SCH (20:22)
[2017-02-23] MEDS: TraZODone HCL 50 MG TABLET GT SCH (20:22)
[2017-02-23] MEDS: CefTRIAXone 1 GM/DEXTROSE 50 ML IV SCH (21:11)
[2017-02-24] VITALS (9 sets, daily range): BP systolic 127–156; BP diastolic 84–108
[2017-02-24] MEDS: ALBUTEROL SULFATE 2.5 MG/0.5 ML NEB SOLUTION NEB SCH ×4 (02:09→19:48)
[2017-02-24] MEDS: IPRATROPIUM BROMIDE 0.5 MG/2.5 ML NEB SOLUTION NEB SCH ×4 (02:09→19:48)
[2017-02-24 07:32] LABS: GLUCOSE,POINT OF CARE 126 MG/DL (70-110)
[2017-02-24 07:42] LABS: GLUCOSE,POINT OF CARE 235 MG/DL (70-110)
[2017-02-24] MEDS: OXYGEN THERAPY IH SCH ×2 (08:05→09:01)
[2017-02-24] MEDS: MetroNIDAZOLE 500 MG TABLET JT SCH ×3 (08:05→23:36)
[2017-02-24] MEDS: METOPROLOL TARTRATE 50 MG TABLET GT SCH ×2 (08:06→20:30)
[2017-02-24] MEDS: FAMOTIDINE 20 MG TABLET GT SCH (08:07)
[2017-02-24] MEDS: CHOLECALCIFEROL (VIT D3) 2,000 UNITS TABLET GT SCH (08:08)
[2017-02-24] MEDS: LEVOFLOXACIN 250 MG TABLET JT SCH (08:08)
[2017-02-24] MEDS: ACETAMINOPHEN 650 MG/20.3 ML SOLUTION UDCUP JT PRN ×2 (08:09→18:50)
[2017-02-24] MEDS: PANTOPRAZOLE SODIUM 40 MG/VIAL IVP SCH (08:17)
[2017-02-24] MEDS: DOCUSATE SODIUM 100 MG CAPSULE PO SCH ×2 (08:27→20:30)
[2017-02-24] MEDS ORDERED: LEVOFLOXACIN 250 MG TABLET PO SCH (09:00)
[2017-02-24] MEDS: INSULIN ASPART 100 UNITS/ML SQ PRN (12:06)
[2017-02-24 12:07] LABS: GLUCOSE,POINT OF CARE 194 MG/DL (70-110)
[2017-02-24] MEDS: INSULIN REGULAR, HUMAN 100 UNITS/ML SQ PRN ×2 (18:11→23:40)
[2017-02-24 19:47] LABS: GLUCOSE COMMENT 1 Received Meds; GLUCOSE,POINT OF CARE 203 MG/DL (70-110)
[2017-02-24] MEDS: TraZODone HCL 50 MG TABLET GT SCH (20:30)
[2017-02-25] MEDS: IPRATROPIUM BROMIDE 0.5 MG/2.5 ML NEB SOLUTION NEB SCH ×4 (01:34→19:35)
[2017-02-25] MEDS: ALBUTEROL SULFATE 2.5 MG/0.5 ML NEB SOLUTION NEB SCH ×4 (01:34→19:36)
[2017-02-25 05:01] VITALS: BP 135/93
[2017-02-25] MEDS: INSULIN REGULAR, HUMAN 100 UNITS/ML SQ PRN ×4 (06:08→23:40)
[2017-02-25 06:32] LABS: BASOPHILS % (AUTO) 0.3 % (0.0-2.0); EOSINOPHILS % (AUTO) 0.9 % (1.0-6.0); HEMATOCRIT 36.1 % (36-46); HEMOGLOBIN 12.3 g/dL (12.0-16.0); LYMPHOCYTES % (AUTO) 10.1 % (22.0-44.0); MEAN CORPUSCULAR HGB CONC 34.1 G/dL (31.0-37.0); MEAN CORPUSCULAR VOLUME 88 fL (80-100); MONOCYTES # (AUTO) 0.8 K/uL (0.1-1.0); MONOCYTES % (AUTO) 7.9 % (2.0-9.0); NEUTROPHILS # (AUTO) 8.1 K/uL (1.8-7.7); NEUTROPHILS % (AUTO) 80.8 % (40.0-70.0); PLATELET COUNT (AUTO) 253 K/uL (150-450); RED CELL DISTRIBUTION WIDTH 14.8 % (11.5-14.5)
[2017-02-25 07:32] LABS: ANION GAP 9 mmol/L (8-16); CALCIUM, TOTAL 9.5 mg/dL (8.8-10.5); CARBON DIOXIDE 27 mmol/L (22-29); CHLORIDE 95 mmol/L (98-107); CREATININE 0.67 mg/dL (0.60-1.30); GLOMERULAR FILTR. RATE CALC > 60 mL/min (>60); POTASSIUM 4.6 mmol/L (3.5-5.1); SODIUM SERUM 131 mmol/L (136-145); UREA NITROGEN, BLOOD 15 mg/dL (7-18)
[2017-02-25 07:38] VITALS: BP 140/94
[2017-02-25] MEDS: ACETAMINOPHEN 650 MG/20.3 ML SOLUTION UDCUP JT PRN (08:30)
[2017-02-25] MEDS: DOCUSATE SODIUM 100 MG CAPSULE PO SCH ×2 (08:31→20:51)
[2017-02-25] MEDS: FAMOTIDINE 20 MG TABLET GT SCH (08:31)
[2017-02-25] MEDS: MetroNIDAZOLE 500 MG TABLET JT SCH ×3 (08:31→23:40)
[2017-02-25] MEDS: CHOLECALCIFEROL (VIT D3) 2,000 UNITS TABLET GT SCH (08:31)
[2017-02-25] MEDS: METOPROLOL TARTRATE 50 MG TABLET GT SCH ×2 (08:31→20:50)
[2017-02-25] MEDS: PANTOPRAZOLE SODIUM 40 MG/VIAL IVP SCH (08:32)
[2017-02-25] MEDS: OXYGEN THERAPY IH SCH ×2 (08:35→20:52)
[2017-02-25] MEDS: LEVOFLOXACIN 250 MG TABLET JT SCH (09:57)
[2017-02-25 10:06] LABS: GLUCOSE COMMENT 1 Received Meds; GLUCOSE,POINT OF CARE 223 MG/DL (70-110)
[2017-02-25 10:07] LABS: GLUCOSE COMMENT 1 Received Meds; GLUCOSE,POINT OF CARE 177 MG/DL (70-110)
[2017-02-25 11:38] VITALS: BP 112/71
[2017-02-25] MEDS ORDERED: 0.9% SODIUM CHLORIDE 5 ML NEB SOLUTION NEB ONE (11:38)
[2017-02-25 16:00] VITALS: BP 104/60
[2017-02-25 17:17] LABS: GLUCOSE,POINT OF CARE 191 MG/DL (70-110)
[2017-02-25 19:57] LABS: GLUCOSE,POINT OF CARE 217 MG/DL (70-110)
[2017-02-25 20:11] VITALS: BP 112/69
[2017-02-25] MEDS: TraZODone HCL 50 MG TABLET GT SCH (20:51)
[2017-02-25 23:34] VITALS: BP 124/93
[2017-02-26] MEDS: ALBUTEROL SULFATE 2.5 MG/0.5 ML NEB SOLUTION NEB SCH ×4 (02:55→19:42)
[2017-02-26] MEDS: IPRATROPIUM BROMIDE 0.5 MG/2.5 ML NEB SOLUTION NEB SCH ×4 (02:55→19:42)
[2017-02-26 04:48] VITALS: BP 143/92
[2017-02-26] MEDS: INSULIN REGULAR, HUMAN 100 UNITS/ML SQ PRN ×4 (05:34→23:30)
[2017-02-26 07:23] LABS: GLUCOSE COMMENT 1 Received Meds; GLUCOSE,POINT OF CARE 205 MG/DL (70-110)
[2017-02-26 07:26] LABS: GLUCOSE COMMENT 1 Received Meds; GLUCOSE,POINT OF CARE 177 MG/DL (70-110)
[2017-02-26 07:33] VITALS: BP_SYST 142; BP_SYST 160; BP_DIAS 89; BP_DIAS 95
[2017-02-26] MEDS: DOCUSATE SODIUM 100 MG CAPSULE PO SCH ×2 (09:00→21:00)
[2017-02-26] MEDS: CHOLECALCIFEROL (VIT D3) 2,000 UNITS TABLET GT SCH (09:05)
[2017-02-26] MEDS: METOPROLOL TARTRATE 50 MG TABLET GT SCH ×2 (09:05→20:27)
[2017-02-26] MEDS: FAMOTIDINE 20 MG TABLET GT SCH (09:05)
[2017-02-26] MEDS: MetroNIDAZOLE 500 MG TABLET JT SCH ×3 (09:05→23:29)
[2017-02-26] MEDS: PANTOPRAZOLE SODIUM 40 MG/VIAL IVP SCH (09:05)
[2017-02-26] MEDS: LEVOFLOXACIN 250 MG TABLET JT SCH (09:05)
[2017-02-26] MEDS: OXYGEN THERAPY IH SCH ×2 (09:14→20:27)
[2017-02-26 11:36] VITALS: BP 130/84
[2017-02-26 15:37] VITALS: BP 128/78
[2017-02-26 16:17] LABS: GLUCOSE COMMENT 1 Received Meds; GLUCOSE,POINT OF CARE 184 MG/DL (70-110)
[2017-02-26 19:35] VITALS: BP 118/74
[2017-02-26] MEDS: TraZODone HCL 50 MG TABLET GT SCH (20:27)
[2017-02-26 22:17] LABS: GLUCOSE COMMENT 1 Received Meds; GLUCOSE,POINT OF CARE 217 MG/DL (70-110)
[2017-02-26 23:27] VITALS: BP 143/87
[2017-02-27] MEDS: IPRATROPIUM BROMIDE 0.5 MG/2.5 ML NEB SOLUTION NEB SCH ×4 (02:26→19:28)
[2017-02-27] MEDS: ALBUTEROL SULFATE 2.5 MG/0.5 ML NEB SOLUTION NEB SCH ×4 (02:26→19:28)
[2017-02-27 04:43] VITALS: BP 108/75
[2017-02-27] MEDS: INSULIN REGULAR, HUMAN 100 UNITS/ML SQ PRN ×3 (05:50→17:56)
[2017-02-27 06:11] LABS: BASOPHILS % (AUTO) 0.2 % (0.0-2.0); EOSINOPHILS % (AUTO) 1.2 % (1.0-6.0); HEMATOCRIT 36.5 % (36-46); HEMOGLOBIN 12.5 g/dL (12.0-16.0); LYMPHOCYTES # (AUTO) 1.5 K/uL (1.0-4.8); LYMPHOCYTES % (AUTO) 13.6 % (22.0-44.0); MEAN CORPUSCULAR HEMOGLOBIN 30.2 pg (26.0-34.0); MEAN CORPUSCULAR HGB CONC 34.3 G/dL (31.0-37.0); MEAN CORPUSCULAR VOLUME 88 fL (80-100); MONOCYTES # (AUTO) 0.6 K/uL (0.1-1.0); MONOCYTES % (AUTO) 5.5 % (2.0-9.0); NEUTROPHILS # (AUTO) 8.8 K/uL (1.8-7.7); NEUTROPHILS % (AUTO) 79.5 % (40.0-70.0); PLATELET COUNT (AUTO) 442 K/uL (150-450); RED BLOOD CELL COUNT(AUTO) 4.15 MIL/uL (4.00-5.20); WHITE BLOOD COUNT (AUTO) 11.1 K/uL (4.5-11.0)
[2017-02-27 06:22] LABS: ANION GAP 6 mmol/L (8-16); CALCIUM, TOTAL 9.4 mg/dL (8.8-10.5); CARBON DIOXIDE 30 mmol/L (22-29); CHLORIDE 96 mmol/L (98-107); CREATININE 0.68 mg/dL (0.60-1.30); GLOMERULAR FILTR. RATE CALC > 60 mL/min (>60); POTASSIUM 4.5 mmol/L (3.5-5.1); SODIUM SERUM 132 mmol/L (136-145); UREA NITROGEN, BLOOD 16 mg/dL (7-18)
[2017-02-27 06:48] LABS: GLUCOSE COMMENT 1 Received Meds; GLUCOSE,POINT OF CARE 202 MG/DL (70-110)
[2017-02-27 06:48] LABS: GLUCOSE COMMENT 1 Received Meds; GLUCOSE,POINT OF CARE 167 MG/DL (70-110)
[2017-02-27 07:27] VITALS: BP 147/85
[2017-02-27] MEDS: PANTOPRAZOLE SODIUM 40 MG/VIAL IVP SCH (08:33)
[2017-02-27] MEDS: DOCUSATE SODIUM 100 MG CAPSULE PO SCH (08:34)
[2017-02-27] MEDS: FAMOTIDINE 20 MG TABLET GT SCH (08:34)
[2017-02-27] MEDS: MetroNIDAZOLE 500 MG TABLET JT SCH ×2 (08:34→15:51)
[2017-02-27] MEDS: METOPROLOL TARTRATE 50 MG TABLET GT SCH (08:34)
[2017-02-27] MEDS: CHOLECALCIFEROL (VIT D3) 2,000 UNITS TABLET GT SCH (08:34)
[2017-02-27] MEDS: OXYGEN THERAPY IH SCH (08:34)
[2017-02-27] MEDS: LEVOFLOXACIN 250 MG TABLET JT SCH (08:35)
[2017-02-27 11:10] VITALS: BP 127/66
[2017-02-27 12:17] LABS: GLUCOSE COMMENT 1 Received Meds; GLUCOSE,POINT OF CARE 177 MG/DL (70-110)
[2017-02-27 15:18] VITALS: BP 132/81
[2017-02-27 20:01] LABS: GLUCOSE COMMENT 1 Received Meds; GLUCOSE,POINT OF CARE 216 MG/DL (70-110)
== END 2017-02-27 20:00 | DRG 871 ==
LOC: EMS 18:37 → 5N 20:49
PROVIDERS: ADMIT Internal Medicine; ATTEND Internal Medicine
DX: A41.9 Sepsis, unspecified organism (principal); E43 Unspecified severe protein-calorie malnutrition; J15.0 Pneumonia due to Klebsiella pneumoniae; J44.0 Chronic obstructive pulmonary disease with (acute) lower respiratory infection; J44.1 Chronic obstructive pulmonary disease with (acute) exacerbation; R13.10 Dysphagia, unspecified; F03.90 Unspecified dementia, unspecified severity, without behavioral disturbance, psychotic disturbance, mood disturbance, and anxiety; N39.0 Urinary tract infection, site not specified; E11.9 Type 2 diabetes mellitus without complications; R47.02 Dysphasia; B96.89 Other specified bacterial agents as the cause of diseases classified elsewhere; B95.1 Streptococcus, group B, as the cause of diseases classified elsewhere; I10 Essential (primary) hypertension; Z93.1 Gastrostomy status; Z86.73 Personal history of transient ischemic attack (TIA), and cerebral infarction without residual deficits; Z88.5 Allergy status to narcotic agent; Z88.8 Allergy status to other drugs, medicaments and biological substances; Z74.01 Bed confinement status; Z87.01 Personal history of pneumonia (recurrent)
CPT/HCPCS: 51702; 74177; 76705; 82962; 83605; 84132; 87040; 87086; 87147; 87804; 93005; 94640; 94644; 96365; 96366; 96368; 96375; 99291; C9113; J0131; J0456; J0696; J2405; J2543; J3480; J3490; J7030; J7050

== ENCOUNTER 2017-10-08 15:19 | Emergency (ER) | payer MEDICARE, MEDICAID ==
[~2017-10-08] VITALS: Ht 167.6 cm; Wt 63.1 kg
[~2017-10-08 15:19] MED LIST changes: +CHOL200016 PO; -METF500T4 GT; +METF500T6 GT; -MV-M1TAB20 GT; -TRAZ-144 GT; +TRAZ-219 GT
[2017-10-08] MEDS ORDERED: SODIUM CHLORIDE 0.9% 1,000 ML IV ONE ×2 (15:52→17:00)
[2017-10-08] MEDS ORDERED: ACETAMINOPHEN 1000 MG/ISO-OSM 100 ML IV ONE (16:00)
[2017-10-08 16:06] LABS: BASOPHILS % (AUTO) 0.1 % (0.0-2.0); EOSINOPHILS % (AUTO) 0.1 % (1.0-6.0); HEMATOCRIT 40.8 % (36-46); HEMOGLOBIN 13.8 g/dL (12.0-16.0); LYMPHOCYTES # (AUTO) 0.8 K/uL (1.0-4.8); LYMPHOCYTES % (AUTO) 5.1 % (22.0-44.0); MEAN CORPUSCULAR HEMOGLOBIN 28.8 pg (26.0-34.0); MEAN CORPUSCULAR HGB CONC 33.9 G/dL (31.0-37.0); MEAN CORPUSCULAR VOLUME 85 fL (80-100); MONOCYTES % (AUTO) 6.1 % (2.0-9.0); NEUTROPHILS # (AUTO) 14.3 K/uL (1.8-7.7); PLATELET COUNT (AUTO) 262 K/uL (150-450); RED CELL DISTRIBUTION WIDTH 15.6 % (11.5-14.5)
[2017-10-08 16:08] LABS: APPEARANCE,URINE CLOUDY (CLEAR); GLUCOSE, URINE (UA) NEGATIVE (NEGATIVE); KETONES,URINE TRACE mg/dL (NEGATIVE); LEUKOCYTE ESTERASE ,URINE SMALL (NEGATIVE); NITRATE,URINE POSITIVE (NEGATIVE); OCCULT BLOOD,URINE LARGE (NEGATIVE); PH,URINE 5.5 (5.0-8.0); PROTEIN,URINE SEE CONFIRM (NEGATIVE)
[2017-10-08 16:09] LABS: NEUTROPHILS % (AUTO) 88.6 % (40.0-70.0)
[2017-10-08 16:11] LABS: BILIRUBIN,URINE PRELIM. POSITIVE (NEGATIVE)
[2017-10-08] MEDS ORDERED: CefTRIAXone SODIUM 1 GM in DEXTROSE 5%-WATER 10 ML IV ONE (16:15)
[2017-10-08 16:17] LABS: ANION GAP 12 mmol/L (8-16); CALCIUM, TOTAL 9.3 mg/dL (8.8-10.5); CARBON DIOXIDE 28 mmol/L (22-29); CHLORIDE 93 mmol/L (98-107); CREATININE 0.98 mg/dL (0.60-1.30); GLOMERULAR FILTR. RATE CALC 56 mL/min (>60); GLUCOSE,RANDOM 183 mg/dL (70-110); POTASSIUM 3.2 mmol/L (3.5-5.1); SODIUM SERUM 133 mmol/L (136-145); UREA NITROGEN, BLOOD 18 mg/dL (7-18)
[2017-10-08 16:19] LABS: PROTHROMBIN TIME 10.7 SEC (9.4-11.6)
[2017-10-08 16:32] LABS: ALANINE AMINOTRANSFERASE 338 U/L (12-78); ALKALINE PHOSPHATASE 136 U/L (46-116); ASPARTATE AMINOTRANSFERASE 287 U/L (15-37); BILIRUBIN,TOTAL 5.4 mg/dL (0.1-1.0); CREATINE KINASE, TOTAL 54 U/L (26-192); TOTAL PROTEIN, SERUM 7.7 g/dL (6.4-8.2)
[2017-10-08 16:40] LABS: SULFOSALICYLIC ACID,URINE 4+ (Negative)
[2017-10-08 16:41] LABS: LACTIC ACID 3.4 mmol/L (0.4-2.0)
[2017-10-08 16:42] LABS: BACTERIA,URINE Moderate /HPF (None Seen)
[2017-10-08 16:43] LABS: CALCIUM OXALATE CRYSTALS,UR Rare /LPF (None Seen); SQUAMOUS EPITHELIAL CELL,UR Moderate /LPF (None Seen)
[2017-10-08 16:47] LABS: COARSE GRANULAR CASTS,URINE 0-2 /LPF (None Seen); MUCUS,URINE Few LPF (None Seen)
[2017-10-08 16:48] LABS: AMORPHOUS SEDIMENT,UR Moderate /LPF (None Seen)
[2017-10-08] MEDS ORDERED: MetroNIDAZOLE 500 MG/NACL 100 ML IV ONE (19:15)
[2017-10-08 22:17] VITALS: BP 102/56
== END 2017-10-08 22:28 | disposition short-term general hospital (02) ==
LOC: EMS 15:20
DX: A41.9 Sepsis, unspecified organism (principal); N39.0 Urinary tract infection, site not specified; K83.0 Cholangitis; I10 Essential (primary) hypertension; E78.00 Pure hypercholesterolemia, unspecified; Z88.5 Allergy status to narcotic agent; Z88.8 Allergy status to other drugs, medicaments and biological substances
CPT/HCPCS: 36415; 51702; 71045; 76705; 80053; 81001; 82550; 83605; 84484; 85025; 85610; 85730; 87040; 87086; 93005; 96361; 96365; 96375; 99285; J0131; J0696; J3490; J7030; J7060

== ENCOUNTER 2020-12-27 14:32 | Emergency (ER) | payer MEDICAID, MEDICARE, OTHER ==
[~2020-12-27 14:32] MED LIST changes: -CHOL200016 PO; +METF-960 GT; -METF500T6 GT; +ONDA-104 GT; -ONDA4 GT; -TRAZ-219 GT
[2020-12-27 15:40] LABS: COVID AG,FIA SOURCE NASOPHARYNGEAL
== END 2020-12-27 17:54 ==
LOC: EMS 14:32
DX: I46.9 Cardiac arrest, cause unspecified (principal); E78.00 Pure hypercholesterolemia, unspecified; I10 Essential (primary) hypertension; Z20.822 Contact with and (suspected) exposure to COVID-19; Z88.5 Allergy status to narcotic agent; Z88.8 Allergy status to other drugs, medicaments and biological substances; Z79.84 Long term (current) use of oral hypoglycemic drugs; Z86.73 Personal history of transient ischemic attack (TIA), and cerebral infarction without residual deficits
CPT/HCPCS: 87426; 99291; U0003; Z7502